=== PATIENT | female | born 1990 | race American Indian/Alaskan Native ===

== ENCOUNTER 2018-06-27 09:48 | Emergency (ER) | payer MEDICAID, OTHER ==
[2018-06-27 10:37] LABS: Basophils % (Auto) 0.4 % (0.0-1.8); Eosinophils % (Auto) 0.7 % (0.0-4.3); Hematocrit 36.7 % (30.3-42.9); Hemoglobin 12.3 gm/dl (10.1-14.3); Lymphocytes # (Auto) 1.9 K/mm3 (1.2-5.4); Lymphocytes % (Auto) 33.4 % (13.4-35.0); Mean Corpuscular HGB Conc 33 % (30-34); Mean Corpuscular Volume 87 fl (79-97); Monocytes # (Auto) 0.4 K/mm3 (0.0-0.8); Monocytes % (Auto) 7.6 % (0.0-7.3); Platelet Count 283 K/mm3 (140-440); Red Blood Count 4.23 M/mm3 (3.65-5.03); Red Cell Distribution Width 14.4 % (13.2-15.2)
[2018-06-27] MEDS ORDERED: NARCAN 0.4 MG/1 ML IV ONE ×2 (10:48→12:28)
[2018-06-27 10:51] LABS: BUN/Creatinine Ratio 14; Blood Urea Nitrogen 13 mg/dL (7-17); Calcium 8.8 mg/dL (8.4-10.2); Hemolysis Index 6
[2018-06-27] MEDS ORDERED: NARCAN 0.4 MG/1 ML ONE (10:58)
[2018-06-27] MEDS ORDERED: NACL 0.9% 1000 ML 1,000 ML IV ONE (11:29)
--- NOTE | 2018-06-27 11:57 | XRay Report ---
FINAL REPORT EXAM: XR CHEST 1V AP HISTORY: overdose on opiates, r/o aspiration TECHNIQUE: Frontal chest radiograph. PRIORS: None. FINDINGS: The cardiomediastinal silhouette is normal. No focal consolidation. No pleural effusion. No pneumothorax. No acute osseous abnormality. IMPRESSION: No acute cardiopulmonary process.
--- NOTE | 2018-06-27 12:20 | Emergency Department Report ---
HPI - General Chief Complaint: Psych Time Seen by Provider: 06/27/18 10:25 - HPI HPI: patient with untreated depression, had an argument with her girlfriend, when she became suicidal and took 4 pills of percocet 5mg, 3 benadryl 25mg, and one xanax 1mg, patient states the pills were hers. she took the pills around midnight 06/27/18. She denies any other past medical history. mother and sister at bedside contributed to this history. ED Past Medical Hx - Past Medical History Previous Medical History?: No - Social History Smoking Status: Unknown if ever smoked ED Review of Systems ROS: Stated complaint: EVALUATION Other details as noted in HPI Comment: All other systems reviewed and negative Gastrointestinal: nausea. denies: vomiting Psychiatric: anxiety, depression, suicidal thoughts. denies: auditory hallucinations, visual hallucinations, homicidal thoughts Physical Exam - Physical Exam Vital Signs: Vital Signs 06/27/18 06/27/18 06/27/18 10:13 11:01 11:13 Temperature 98.6 F Pulse Rate 103 H 95 H Respiratory 15 18 Rate Blood Pressure 118/73 115/78 [Left] O2 Sat by Pulse 99 99 100 Oximetry Physical Exam: GENERAL APPEARANCE: dishaveled, anxious HEAD: normocephalic. EYES: PERRL, EOMI. Fundi normal, vision is grossly intact. EARS: External auditory canals and tympanic membranes clear, hearing grossly intact. NOSE: No nasal discharge. THROAT: Oral cavity and pharynx normal. No inflammation, swelling, exudate, or lesions. Teeth and gingiva in good general condition. NECK: Neck supple, non-tender without lymphadenopathy, masses or thyromegaly. CARDIAC: Normal S1 and S2. No S3, S4 or murmurs. Rhythm is regular. There is no peripheral edema, cyanosis or pallor. Extremities are warm and well perfused. Capillary refill is less than 2 seconds. No carotid bruits. LUNGS: Clear to auscultation and percussion without rales, rhonchi, wheezing or diminished breath sounds. ABDOMEN: Positive bowel sounds. Soft, nondistended, nontender. No guarding or rebound. No masses psych: suicidal,no hi, no hallucinations ED Course Vital Signs 06/27/18 06/27/18 06/27/18 10:13 11:01 11:13 Temperature 98.6 F Pulse Rate 103 H 95 H Respiratory 15 18 Rate Blood Pressure 118/73 115/78 [Left] O2 Sat by Pulse 99 99 100 Oximetry - Reevaluation(s) Reevaluation #1: 06/27/18 14:20 medically clear for inpatient psych treatment. Reevaluation #2: 06/27/18 14:20 narcan given x 2 patient more awake, following command. ED Medical Decision Making - Lab Data Result diagrams: 06/27/18 10:21 06/27/18 10:21 - Medical Decision Making 28 y.o aaf with suicidal gesture, medically clear, recommended to psych for inpatient treatment of her suicidal gesture. i recommend against rescinding her 10-13 prior to the 72 hrs old. - Differential Diagnosis suicidal Critical care attestation.: If time is entered above; I have spent that time in minutes in the direct care of this critically ill patient, excluding procedure time. ED Disposition Clinical Impression: Suicide attempt by drug ingestion Qualifiers: Encounter type: initial encounter Qualified Code(s): T50.902A - Poisoning by unspecified drugs, medicaments and biological substances, intentional self-harm, initial encounter Intentional opiate overdose Qualifiers: Encounter type: initial encounter Qualified Code(s): T40.602A - Poisoning by unspecified narcotics, intentional self-harm, initial encounter Clinical Impression: (Ruled Out): Suicide gesture Disposition: [id number]/[id number] PSY HOSP/PSY UNIT Is pt being admited?: No Does the pt Need Aspirin: No Condition: Stable Referrals: PRIMARY CARE, [Primary Care Provider] - 3-5 Days Forms: Work/School Release Form(ED)
[2018-06-28 07:57] LABS: Bacteria,Urine 1+ /HPF (Negative); Bilirubin,Urine NEG (Negative); Blood,Urine NEG (Negative); Color,Urine Yellow (Yellow); Mucus,Urine 3+ /HPF; Protein,Urine <15 mg/dL mg/dL (Negative)
[2018-06-28 07:58] LABS: HCG Qualitative,Urine Negative (Negative)
[2018-06-28 08:04] LABS: Amphetamine Screen,Urine PRESUMPTIVE NEGATIVE; Cocaine Screen,Urine PRESUMPTIVE NEGATIVE; Methadone Screen,Urine PRESUMPTIVE NEGATIVE; Opiate Screen,Urine PRESUMPTIVE NEGATIVE
[2018-06-28 08:16] LABS: Benzodiazepines Screen,Urine PRESUMPTIVE POSITIVE; Cannabinoid Screen,Urine PRESUMPTIVE POSITIVE
--- NOTE | 2018-06-28 11:55 | Consultation ---
History of Present Illness - Reason for Consult Consult date: 06/28/18 Reason for consult: Mental Health Evaluation Requesting physician: DARRYL BEEBE - Chief Complaint Chief complaint: "I took the pills" - History of Present Psychiatric Illness 27 y.o. AA female who presented to the ER for overdosing on several pills. Today the patient was calm and cooperative during the assessment. She stated that she took several pills (Xanax, Oxycodone, and Benadryl). She stated that the Oxycodone/Xanax were not her pills. She stated that she took the pills because she got into an argument with her girlfriend. She stated that she tried to apologize to her girlfriend, but felt like she wasn't being heard so she took the pills.The patient would not conform or deny if she was trying to kill herself. She stated that she felt alone and sad prior to swallowing the pills. She stated, "I felt depressed." She denies any previous overdose or suicide attempt when asked. She denies a mental health dx. She denies SI/HI's and AVH's. She denies erratic sleep and a poor appetite. She denies excessive alcohol consumption (etoh), but acknowledged smoking marijuana "sometimes." The patient do not want to take medication at this time for depression, she prefer talk therapy. Medications and Allergies Allergies Allergy/AdvReac Type Severity Reaction Status Date / Time No Known Allergies Allergy Verified 06/27/18 11:02 Home Medications Medication Instructions Recorded Confirmed Last Taken Type No Known Home Medications [No 06/28/18 06/28/18 Unknown History Reported Home Medications] Past psychiatric history - Past Medical History Past Medical History: No medical history Past Surgical History: No surgical history - past Psychiatric treatment and history psychiatric treatment history: denies a psy hx and afam psy hx. - Social History Social history: lives with family Mental Status Exam - Vital signs Last Vital Signs Temp 98.3 F 06/28/18 08:00 Pulse 76 06/28/18 08:00 Resp 16 06/28/18 08:00 BP 113/72 06/28/18 08:00 Pulse Ox 100 06/28/18 08:00 - Exam Narrative exam: MSE: Appearance: calm, cooperative Behavior: regular eye contact Speech: regular rate and tone Mood: "okay" Affect: congruent to mood Thought Process: circumstantial Thought Content: denies SI/HI's and AVH's Motor Activity: sitting up in bed Cognition: A/O x 3 Insight: fair Judgment: variable Results Result Diagrams: 06/27/18 10:21 06/27/18 10:21 Abnormal lab results 06/27/18 Range/Units 10:21 Total Creatine Kinase 180 H (30-135) units/L All other labs normal. Assessment and Plan Assessment and plan: Impression: MDD, Single Episode. Cannabis Use DO. Today the patient was calm and cooperative during the assessment. QTC 417. DDx: R/O Bipolar DO, R/O Substance induced Mood DO Recommendation/Plan: Continue 1013. Risk/Benefits for antidepressants was discussed with the patient, she prefer talk therapy at this time. Dispo: The patient was referred to inpatient psy services. Staffed with Dr Briana Billings.
--- NOTE | 2018-06-29 14:02 | Progress Note ---
Subjective - Reason for Consult Consult date: 06/29/18 Reason for consult: Psychiatric Follow-up Evaluation - Chief Complaint Chief complaint: "I'm ready to go" Patient is s 27 y.o. AA female who presented to the ER for overdosing on several pills. Today the patient was calm and cooperative during the assessment. Daniela Serna, girlfriend, of 5 years accompanied patient during the assessment. Patient reports " I was going through something. I just had a moment. Patient denies SI/HI's, A/VH's, and delusions. Patient reports appropriate sleep and appetite. Patient denies depressed mood. She verbalizes " I just had a moment." Patient appears to have a supportive family that wants her discharged. Patient refuses medication. Mental Status Exam - Vital signs Last Vital Signs Temp 98.9 F 06/29/18 08:00 Pulse 73 06/29/18 08:00 Resp 20 06/29/18 08:00 BP 132/78 06/29/18 08:00 Pulse Ox 100 06/29/18 08:00 - Exam Narrative exam: Mental Status Exam Appearance: calm, cooperative Behavior: regular eye contact Speech: regular rate and tone Mood: "I'm ready to go"; anxious Affect: congruent to mood Thought Process: circumstantial Thought Content: denies SI/HI's and AVH's Motor Activity: sitting up in bed Cognition: A/O x 3 Insight: fair Judgment: variable Assessment and Plan Impression: MDD, Single Episode. Cannabis Use DO. Today the patient was calm and cooperative during the assessment. QTC 417. Staff reports that patient behavior is appropriate and appears to be of no danger to self/others. DDx: R/O Bipolar DO, R/O Substance induced Mood DO Recommendation/Plan: 1. Continue 1013. Re-evaluate 1013 in 24 hours. 2. Risk/Benefits for antidepressants was discussed with the patient, she prefer talk therapy at this time. Disposition: The patient was referred to inpatient psychiatric services. If 1013 is rescinded on 06/30/18 patient will follow-up at the [facility]. Staffed with Dr. Briana Billings.
[2018-06-30 09:50] VITALS: BP 136/68
== END 2018-06-30 12:59 ==
LOC: EEVIPCON 09:48 → ED 09:48
DX: T50.902A Poisoning by unspecified drugs, medicaments and biological substances, intentional self-harm, initial encounter (principal); T40.602A Poisoning by unspecified narcotics, intentional self-harm, initial encounter; F32.9 Major depressive disorder, single episode, unspecified; F12.10 Cannabis abuse, uncomplicated; X58.XXXA Exposure to other specified factors, initial encounter; Y93.89 Activity, other specified; Y99.8 Other external cause status; Y92.89 Other specified places as the place of occurrence of the external cause
CPT/HCPCS: 36415; 71045; 80048; 80307; 81001; 81025; 82550; 85025; 93005; 93010; 96374; 96376; 99285; G0480; J2310; J7030; 80320